=== PATIENT | male | born 1995 | race African-American/Black ===

== ENCOUNTER 2017-06-15 20:01 | Emergency (ER) | payer SELFPAY ==
[~2017-06-15] VITALS: Ht 182.9 cm; Wt 120.2 kg
[~2017-06-15 20:01] MED LIST: AMOXICILLIN500 MG OR; AUGMENTIN500TAB PO; FEXOFENADINE PO; FLONASE SPRAY50 MCG; NO CURRENT MEDS; PERCOCET 5/325M1 TAB PO; PSEUDOEPHEDRINE PO; TRAMADOL HCL50 MG PO; TYLENOL # 31 TA1 PO
[2017-06-15] MEDS ORDERED: LORTAB 1010 MG PO (21:28)
== END 2017-06-15 21:50 | disposition home or self-care (01) | DRG 563 ==
LOC: ED 20:01
PROC: 2W3EX1Z Immobilization of Right Hand using Splint (ICD-10-PCS; principal; 2017-06-15)
DX: S62.336A Displaced fracture of neck of fifth metacarpal bone, right hand, initial encounter for closed fracture (principal); W18.30XA Fall on same level, unspecified, initial encounter; Y93.67 Activity, basketball; Y92.310 Basketball court as the place of occurrence of the external cause

== ENCOUNTER 2018-08-17 23:30 | Emergency (ER) | payer SELFPAY ==
[~2018-08-17] VITALS: Ht 182.9 cm; Wt 122.6 kg
[~2018-08-17 23:30] MED LIST changes: +LORTAB 1010 MG PO; +VOLTAREN - GENE75 MG PO
[2018-08-17] MEDS ORDERED: ORPHENADRINE100 MG PO (23:59)
[2018-08-17] MEDS ORDERED: IBUPROFEN600 MG PO (23:59)
[2018-08-18 00:10] VITALS: BP 131/71
== END 2018-08-18 00:10 | disposition home or self-care (01) | DRG 563 ==
LOC: ED 23:30
DX: S46.912A Strain of unspecified muscle, fascia and tendon at shoulder and upper arm level, left arm, initial encounter (principal); E11.9 Type 2 diabetes mellitus without complications; I10 Essential (primary) hypertension; F17.210 Nicotine dependence, cigarettes, uncomplicated; X50.0XXA Overexertion from strenuous movement or load, initial encounter

== ENCOUNTER 2018-08-19 23:47 | Emergency (ER) | payer SELFPAY ==
[~2018-08-19] VITALS: Ht 182.9 cm; Wt 122.0 kg
[~2018-08-19 23:47] MED LIST changes: +IBUPROFEN600 MG PO; +ORPHENADRINE100 MG PO
[2018-08-20 02:00] VITALS: BP 116/57
== END 2018-08-20 02:50 | disposition home or self-care (01) | DRG 313 ==
LOC: ED 23:47
DX: R07.89 Other chest pain (principal); E11.9 Type 2 diabetes mellitus without complications; I10 Essential (primary) hypertension; F17.200 Nicotine dependence, unspecified, uncomplicated